=== PATIENT | female | born 1985 | race Caucasian/White ===

== ENCOUNTER → 2021-02-02 | Day surgery (SDC) | payer OTHER ==
[~2021-02-02] MED LIST: BACTRIM DS TAB1 EACH PO; CYTOTEC200 MCG PO; HEMOCYTE324 MG PO; IBUPROFEN800 MG PO; LIDOCAINE-PRILOC5 GM TP; PERCOCET 5/325 T1 EA PO
[2021-02-02 12:18] LABS: HEMOGLOBIN 10.6 gm/dl (12.3-15.3); RED BLOOD COUNT 4.27 M/UL (4.00-5.10); WHITE BLOOD COUNT 6.2 K/UL (4.5-11.0)
== END | disposition home or self-care (01) ==
LOC: OR 11:21
PROVIDERS: Obstetrics & Gynecology
DX: O02.1 Missed abortion (principal); N88.2 Stricture and stenosis of cervix uteri; G43.909 Migraine, unspecified, not intractable, without status migrainosus; F32.A Depression, unspecified; I10 Essential (primary) hypertension; F17.210 Nicotine dependence, cigarettes, uncomplicated; K64.9 Unspecified hemorrhoids; Z20.822 Contact with and (suspected) exposure to COVID-19
CPT/HCPCS: 36415; 81001; 85025; J0690; J1100; J1885; J2001; J2250; J2405; J2704; J3010; J7120; U0002

== ENCOUNTER → 2021-02-10 | Day surgery (SDC) | payer OTHER ==
[2021-02-10 06:42] LABS: HEMOGLOBIN 10.6 gm/dl (12.3-15.3); RED BLOOD COUNT 4.2 M/UL (4.00-5.10); WHITE BLOOD COUNT 7.3 K/UL (4.5-11.0)
== END | disposition home or self-care (01) ==
LOC: OR 05:51
PROVIDERS: Obstetrics & Gynecology
DX: O02.1 Missed abortion (principal); F17.210 Nicotine dependence, cigarettes, uncomplicated; Z20.822 Contact with and (suspected) exposure to COVID-19
CPT/HCPCS: 36415; 81001; 85025; J1100; J1170; J1885; J2210; J2250; J2370; J2405; J2704; J3010; J7120

== ENCOUNTER 2021-10-09 21:35 | Emergency (ER) | payer OTHER ==
[2021-10-09 22:23] LABS: HEMOGLOBIN 9.9 gm/dl (12.3-15.3); RED BLOOD COUNT 3.72 M/UL (4.00-5.10); WHITE BLOOD COUNT 4.8 K/UL (4.5-11.0)
[2021-10-09 22:41] LABS: BUN/CREATININE RATIO 15 (0-10)
[2021-10-09] MEDS ORDERED: DILANTIN 100 M100 MG PO (23:16)
== END 2021-10-10 | disposition home or self-care (01) ==
LOC: ER1 21:35
PROVIDERS: Nurse Practitioner
DX: G40.909 Epilepsy, unspecified, not intractable, without status epilepticus (principal); F17.210 Nicotine dependence, cigarettes, uncomplicated; N18.9 Chronic kidney disease, unspecified
CPT/HCPCS: 70450; 80053; 80185; 85025; 93005; 99284; G0480